=== PATIENT | female | born 1940 | race Caucasian/White ===

== ENCOUNTER → 2017-02-01 | Outpatient (CLI) | payer OTHER | LOC: CIMAGING 07:25 | DX: Z12.31 Encounter for screening mammogram for malignant neoplasm of breast (principal) | CPT/HCPCS: G0202 ==

== ENCOUNTER → 2017-11-10 | Outpatient (CLI) | payer OTHER | LOC: CIMAGING 14:18 | PROVIDERS: ATTEND Family Medicine | DX: R42 Dizziness and giddiness (principal); R41.3 Other amnesia | CPT/HCPCS: 70450-PO ==

== ENCOUNTER → 2018-02-04 | Outpatient (CLI) | payer OTHER | LOC: CIMAGING 13:55 | PROVIDERS: ATTEND Family Medicine | DX: Z12.31 Encounter for screening mammogram for malignant neoplasm of breast (principal) ==